=== PATIENT | male | born 1960 | race Caucasian/White ===

== ENCOUNTER 2017-11-05 09:05 | Emergency (ER) | payer OTHER ==
[2017-11-05 09:49] VITALS: BP 143/75; PULSE 90; TEMP 98.3; BMI 40.4
--- NOTE | 2017-11-05 10:37 | PDOC ---
History of Present Illness - General Chief Complaint: Respiratory Stated Complaint: RESPIRATORY Time Seen by Provider: 11/05/17 09:45 History Source: Patient - History of Present Illness Timing/Duration: reports: week Past History - Past Medical History Allergies/Adverse Reactions: Allergies Allergy/AdvReac Type Severity Reaction Status Date / Time No Known Allergies Allergy Verified 11/05/17 09:41 Home Medications: Ambulatory Orders Albuterol Sulfate Inhaler - [Ventolin HFA Inhaler -] 1 - 2 inh PO QID #1 inhaler 11/05/17 Benzonatate [Tessalon Pearls -] 100 mg PO TID #21 capsule 11/05/17 Prednisone [Deltasone] 20 mg PO DAILY 11/05/17 levoFLOXacin [Levaquin] 750 mg PO DAILY 11/05/17 COPD: No DVT: No Diabetes: No - Surgical History Abdominal Surgery: Yes (Right inguinal hernia) - Immunization History Immunization Up to Date: No - Suicide/Smoking/Psychosocial Hx Smoking History: Never smoked Information on smoking cessation initiated: No Hx Alcohol Use: No Drug/Substance Use Hx: No Substance Use Type: None Review of Systems - Review of Systems Constitutional: No: Chills, Fever Respiratory: Yes: Cough, Wheezing. No: Shortness of Breath *Physical Exam - Vital Signs Last Vital Signs Temp Pulse Resp BP Pulse Ox 98.3 F 90 16 143/75 96 11/05/17 09:41 11/05/17 09:41 11/05/17 09:41 11/05/17 09:41 11/05/17 09:41 ED Treatment Course - RADIOLOGY Radiology Studies Ordered: Category Date Time Status CHEST PA & LAT [RAD] Stat Radiology 11/05/17 09:52 Taken Medical Decision Making - Medical Decision Making 11/05/17 10:23 57 yo M, NIDDM, non-smoker, here w/ mostly non-productive cough x 1 week w/ intermittent wheezing. No SOB, hemoptysois, f/c, On day 3 of zpack w/ no relief. See exam M/l viral URI w/ bronchospasm Stable and well manuel w/ clear chest/lungs CXR unremarkable -dc w/ alb pump and tessalon *DC/Admit/Observation/Transfer Diagnosis at time of Disposition: Cough - Discharge Dispostion Disposition: HOME Condition at time of disposition: Good - Prescriptions Prescriptions: Albuterol Sulfate Inhaler - [Ventolin HFA Inhaler -] 1 - 2 inh PO QID #1 inhaler Benzonatate [Tessalon Pearls -] 100 mg PO TID #21 capsule - Referrals - Patient Instructions Printed Discharge Instructions: DI for Viral Upper Respiratory Infection -- Adult Additional Instructions: Your symptoms are most likely caused by a virus causing some spasms in your airway Take medications as directed and continue following up with your PMD - Post Discharge Activity
== END 2017-11-05 10:25 | disposition home or self-care (01) ==
LOC: JER 09:05
DX: J06.9 Acute upper respiratory infection, unspecified (principal); J98.01 Acute bronchospasm; E11.9 Type 2 diabetes mellitus without complications; Z79.84 Long term (current) use of oral hypoglycemic drugs; Z87.891 Personal history of nicotine dependence
CPT/HCPCS: 71046-TC-FY; 99281-25